=== PATIENT | female | born 1960 | race Caucasian/White ===

== ENCOUNTER → 2017-10-05 | Outpatient (CLI) | payer BC ==
[2017-10-05 09:45] LABS: Basophils # (A) 0.1 k/uL (0-0.2); Basophils % (A) 1 %; Eosinophils # (A) 0.4 k/uL (0-0.7); Eosinophils % (A) 4 %; HCT 34.7 % (34.0-46.0); HGB 11.7 gm/dL (11.4-16.0); Lymphocytes # (A) 3.2 k/uL (1.0-4.8); Lymphocytes % (A) 34 %; MCH 29.1 pg (25.0-35.0); MCHC 33.7 g/dL (31.0-37.0); MCV 86.5 fL (80.0-100.0); Mean Platelet Volume 6.7; Monocytes # (A) 0.4 k/uL (0-1.0); Monocytes % (A) 5 %; Neutrophils # (A) 5.2 k/uL (1.3-7.7); Neutrophils % (A) 55 %; Platelet Count 478 k/uL (150-450); RBC 4.01 m/uL (3.80-5.40); RDW 12.9 % (11.5-15.5); WBC 9.5 k/uL (3.8-10.6)
== END ==
LOC: LABPAT 09:01
PROVIDERS: ATTEND Obstetrics & Gynecology
DX: Z01.818 Encounter for other preprocedural examination (principal); I10 Essential (primary) hypertension; N95.0 Postmenopausal bleeding; Z01.812 Encounter for preprocedural laboratory examination
CPT/HCPCS: 36415; 85025; 93005

== ENCOUNTER → 2017-10-16 | Day surgery (SDC) | payer BC ==
[2017-10-11 10:02] VITALS: BMI 33.7
[~2017-10-16] MED LIST: DEXAMETHASONE SOD PHOSPHATE 10 MG/ML 1 ML VIAL IV ONE; KETOROLAC 30 MG/ML 1 ML VIAL ONE; LIDOCAINE 1% (PF) 10 MG/ML (30 ML SDV) SQ ONE; LIDOCAINE 1% 20 ML VIAL (10MG/ML) FOR IV START INTRADERMA ONE; LIDOCAINE 1% INJ 10MG/ML (20 ML MDV) ONE; MIDAZOLAM 2 MG/2 ML VIAL IV PRN; MIDAZOLAM 2 MG/2 ML VIAL ONE; ONDANSETRON 4 MG/2 ML VIAL IVP ONE; PROPOFOL 10 MG/ML 20 ML VIAL IV ONE; SCOPOLAMINE 1.5MG/72HR PATCH TRANSDERM ONE; ceFAZolin IN SWFI 2 GM/20 ML SYRINGE IVP ONE; fentaNYL (PF) 50 MCG/ML 2 ML AMP IV PRN; fentaNYL (PF) 50 MCG/ML 2 ML AMP ONE
[2017-10-16 08:35] LABS: Glucose,Whole Blood 146 mg/dL (75-99)
[2017-10-16] MEDS: LACTATED RINGERS 1,000 ML IV SCH ×2 (08:36→08:40)
--- NOTE | 2017-10-16 11:09 | P.OP ---
Date of Procedure: 10/16/17 Preoperative Diagnosis: Postmenopausal bleeding Thickened endometrium Postoperative Diagnosis: Postmenopausal bleeding Thickened endometrium Endometrial polyps Procedure(s) Performed: Diagnostic hysteroscopy with polypectomy and D&C Anesthesia: MAC Surgeon: Genie Moss Estimated Blood Loss (ml): 5 IV fluids (ml): 300 Urine output (ml): 400 Pathology: other (Endometrial polyps and curettings) Condition: stable Disposition: PACU Indications for Procedure: Postmenopausal bleeding and findings of thickened endometrium on ultrasound Operative Findings: Multiple polypoid lesions emanating from the fundal and lower uterine segment of the uterus Description of Procedure: After the patient was met in the preoperative holding area and all questions were answered she was taken to the operating room where anesthetic was administered without incident. She was in positioned, prepped and draped in the dorsal lithotomy position. Bladder was drained for a copious amount of clear urine. Speculum was placed in the vagina and the cervix was grasped anteriorly with a single-tooth tenaculum. Paracervical block with lidocaine was placed. Uterus was sounded to 8 cm. The cervix was easily dilated with dilators to allow for passage of the diagnostic hysteroscope. Upon introduction of the hysteroscope multiple polypoid lesions were noted filling the uterine cavity. Hysteroscope was removed and the cervix was further dilated to allow for passage of the stone polyp forceps. Multiple fragments of polyp were removed using the forceps. Banjo curet was then introduced and the uterus was circumferentially curettaged with additional tissue obtained. Hysteroscope was reintroduced and complete resection of all polyps was noted. Instruments were then removed from the cervix which was observed. No active bleeding was noted. All instrument removed from the vagina. The patient was awoken from anesthetic without incident and transported to recovery in stable condition. Counts were correct.
[2017-10-16 11:27] VITALS: TEMP 96.8
[2017-10-16 11:31] VITALS: RESP 16
[2017-10-16 11:35] LABS: Glucose,Whole Blood 122 mg/dL (75-99)
[2017-10-16 12:24] VITALS: BP 113/60; PULSE 62
== END | disposition home or self-care (01) ==
LOC: OR 07:39
PROVIDERS: ATTEND Obstetrics & Gynecology
DX: N84.0 Polyp of corpus uteri (principal); E11.9 Type 2 diabetes mellitus without complications; I10 Essential (primary) hypertension; Z79.1 Long term (current) use of non-steroidal anti-inflammatories (NSAID); Z79.4 Long term (current) use of insulin; Z79.899 Other long term (current) drug therapy; Z98.51 Tubal ligation status; Z88.8 Allergy status to other drugs, medicaments and biological substances; Z88.7 Allergy status to serum and vaccine; Z83.3 Family history of diabetes mellitus; Z80.8 Family history of malignant neoplasm of other organs or systems
CPT/HCPCS: 88305; 58558; J2250; J1100; J2405; J2001 ×2; J3010; J1885; J2704; J0690

== ENCOUNTER → 2019-11-19 | Outpatient (CLI) | payer BC ==
--- NOTE | 2019-11-19 07:54 | US ---
EXAMINATION TYPE: US abdomen complete DATE OF EXAM: 11/19/2019 COMPARISON: NONE CLINICAL HISTORY: R10.811 RUQ ABD TENDERNESS. RUQ tenderness. NPO. EXAM MEASUREMENTS: Liver Length: 17.4 cm Gallbladder Wall: 0.2 cm CBD: 0.4 cm Spleen: 10.7 cm Right Kidney: 9.9 x 4.0 x 5.2 cm Left Kidney: 10.6 x 4.8 x 5.6 cm Pancreas: Tail obscured by overlying bowel gas Liver: Appears coarse and echogenic. Areas of focal sparing seen adjacent to GB Gallbladder: wnl Evidence for sonographic Jimenez's sign: neg CBD: wnl Spleen: wnl Right Kidney: Lower pole cystic appearing lesion = 1.8 x 1.6 x 1.7 cm Left Kidney: Mid/lower anterior cortical cystic appearing lesion = 1.4 x 1.4 x 1.2 cm Upper IVC: Obscured by overlying bowel gas Abd Aorta: Proximal and mid portion obscured by overlying bowel gas The intrahepatic portion of the IVC and proximal abdominal aorta are within normal limits. There is no evidence of cholelithiasis. Common bile duct is unremarkable. The visualized portions of the solorzano creas are homogenous. The spleen is unremarkable. Kidneys are symmetric and free of hydronephrosis. IMPRESSION: 1. Suspect hepatic steatosis with areas of focal fatty sparing. Hepatocellular disease not excluded. 2. Renal cystic changes as discussed.
== END | disposition home or self-care (01) ==
LOC: RADUSWWP 07:00
PROVIDERS: ATTEND Family Medicine
DX: N28.1 Cyst of kidney, acquired (principal); R10.811 Right upper quadrant abdominal tenderness
CPT/HCPCS: 76700

== ENCOUNTER 2022-11-13 23:26 | Emergency (ER) | payer OTHER ==
[2022-11-13 23:42] VITALS: TEMP 98.1
[2022-11-14] MEDS ORDERED: LIDOCAINE 5% PATCH TOPICAL STA (00:08)
--- NOTE | 2022-11-14 01:10 | XR ---
EXAM: XR Right Elbow Complete, 3 or More Views CLINICAL HISTORY: ITS.REASON XR Reason: Pain, trauma TECHNIQUE: Frontal, lateral and oblique views of the right elbow. COMPARISON: No relevant prior studies available. FINDINGS: Bones/joints: Unremarkable. No acute fracture. No dislocation. Soft tissues: Unremarkable. IMPRESSION: Normal right elbow x-rays.
--- NOTE | 2022-11-14 01:10 | XR ---
EXAM: XR Right Shoulder Complete, 2 or More Views CLINICAL HISTORY: ITS.REASON XR Reason: Pain, trauma TECHNIQUE: Two or more views of the right shoulder. COMPARISON: No relevant prior studies available. FINDINGS: Bones/joints: Unremarkable. No acute fracture. No dislocation. Soft tissues: Unremarkable. IMPRESSION: Normal right shoulder x-rays.
--- NOTE | 2022-11-14 02:09 | XR ---
EXAM: XR Right Forearm, 2 Views CLINICAL HISTORY: ITS.REASON XR Reason: Pain, trauma TECHNIQUE: Frontal and lateral views of the right forearm. COMPARISON: No relevant prior studies available. FINDINGS: Bones/joints: Unremarkable. No acute fracture. No dislocation. Soft tissues: Unremarkable. IMPRESSION: Normal right forearm x-rays.
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
[2022-11-14 02:32] VITALS: BP 136/84; PULSE 78; RESP 16
[2022-11-14] MEDS ORDERED: LIDOCAINE 5% PATCH TOPICAL SCH (09:00)
== END 2022-11-14 02:31 | disposition home or self-care (01) ==
LOC: EC 23:26
DX: S46.911A Strain of unspecified muscle, fascia and tendon at shoulder and upper arm level, right arm, initial encounter (principal); E10.9 Type 1 diabetes mellitus without complications; I10 Essential (primary) hypertension; Z79.899 Other long term (current) drug therapy; Z88.1 Allergy status to other antibiotic agents; Z88.7 Allergy status to serum and vaccine; Z88.8 Allergy status to other drugs, medicaments and biological substances; Y04.0XXA Assault by unarmed brawl or fight, initial encounter
CPT/HCPCS: 99283

== ENCOUNTER → 2022-11-15 | Outpatient (CLI) | payer OTHER ==
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
== END | disposition home or self-care (01) ==
LOC: RADMRIMAIN 19:04
PROVIDERS: ATTEND Emergency Medicine
DX: S43.91XA Sprain of unspecified parts of right shoulder girdle, initial encounter (principal); M67.813 Other specified disorders of tendon, right shoulder; S43.421A Sprain of right rotator cuff capsule, initial encounter; S46.011A Strain of muscle(s) and tendon(s) of the rotator cuff of right shoulder, initial encounter; M19.011 Primary osteoarthritis, right shoulder; M25.411 Effusion, right shoulder

== ENCOUNTER → 2022-12-05 | Outpatient (CLI) | payer OTHER ==
[2022-12-05 12:56] LABS: INR 0.9 (<1.2); Partial Thromboplastin Time 24.1 sec (22.0-30.0); Prothrombin Time 9.8 sec (9.0-12.0)
[2022-12-05 21:00] LABS: ALT 23 U/L (8-44); AST 15 U/L (13-35); Albumin 4.7 d/dL (3.8-4.9); Albumin/Globulin Ratio 1.68 Ratio (1.60-3.17); Alkaline Phosphatase 78 U/L (41-126); Blood Urea Nitrogen 36.6 mg/dL (9.0-27.0); Calcium 10.3 mg/dL (8.7-10.3); Carbon Dioxide 26.5 mmol/L (21.6-31.8); Chloride 100 mmol/L (96-109); Globulin 2.8 d/dL (1.6-3.3); Glucose 124 mg/dL (70-110); Sodium 140 mmol/L (135-145); Total Bilirubin 0.4 mg/dL (0.3-1.2); Total Protein 7.5 d/dL (6.2-8.2)
[2022-12-05 22:51] LABS: Basophils # (A) 0.07 X 10*3/uL (0.00-0.10); Basophils % (A) 0.9 %; Eosinophils # (A) 0.17 X 10*3/uL (0.04-0.35); Eosinophils % (A) 2.1 %; HCT 43.6 % (37.2-46.3); HGB 13.8 d/dL (12.0-15.0); Lymphocytes % (A) 29.5 %; MCH 29.6 pg (27.0-32.0); MCHC 31.7 d/dL (32.0-37.0); MCV 93.6 FL (80.0-97.0); Mean Platelet Volume 9.8 FL (9.5-12.2); Monocytes # (A) 0.54 X 10*3/uL (0.20-1.00); Monocytes % (A) 6.6 %; NRBC Per 100 WBC 0 X 10*3/uL (0.00-0.01); Neutrophils # (A) 4.92 X 10*3/uL (1.80-7.70); Neutrophils % (A) 60.4 %; Platelet Count 433 X 10*3/uL (140-440); RBC 4.66 X 10*6/uL (4.10-5.20); RDW 13.4 % (11.5-14.5); WBC 8.14 X 10*3/uL (4.50-10.00)
[2022-12-05 23:06] LABS: Appearance,Urine Clear (Clear); Bilirubin,Urine Negative (Negative); Blood,Urine Negative (Negative); Color,Urine Yellow (Yellow); Ketones,Urine Negative (Negative); Nitrite,Urine Negative (Negative); Specific Gravity,Urine 1.016 (1.001-1.030); Urobilinogen,Urine 0.2 E.U./DL
[2022-12-05 23:13] LABS: Bacteria,Urine None Seen (None Seen)
== END | disposition home or self-care (01) ==
LOC: LABWHC1 11:04
PROVIDERS: ATTEND Family Medicine
DX: Z01.812 Encounter for preprocedural laboratory examination (principal)
CPT/HCPCS: 36415; 80053; 81001; 85025; 85610; 85730

== ENCOUNTER 2023-06-13 08:42 | Day surgery (SDC) | payer OTHER ==
--- NOTE | 2023-06-12 08:25 | P.HPOR ---
History of Present Illness H&P Date: 06/12/23 Chief Complaint: Right shoulder stiffness Patient is a 63-year-old [id number] female who presents with persistent right shoulder stiffness after previously undergoing arthroscopy despite adequate rehabilitation. She does note some night symptoms. Review of Systems As per HPI Past Medical History Past Medical History: Diabetes Mellitus, Hypertension Additional Past Medical History / Comment(s): Hx Ameloblastoma of jaw/pre- cancerous. History of Any Multi-Drug Resistant Organisms: None Reported Past Surgical History: Orthopedic Surgery, Tubal Ligation Additional Past Surgical History / Comment(s): RIGHT MANDIBLE RESECTION, BONE TAKEN FROM LEFT HIP ILIAC CREST AND LEFT FOOT NERVE, LEFT FOREARM ORIF WITH PLATE AND SCREWS, NOW REMOVED SURGERY X4, right shoulder surgery. Past Anesthesia/Blood Transfusion Reactions: No Reported Reaction Additional Past Anesthesia/Blood Transfusion Reaction / Comment(s): STATES DOES NOT HAVE TROUBLE WITH INTUBATION POST SURGERY ON RIGHT MANDIBLE. Smoking Status: Never smoker - Past Family History Mother Family Medical History: Cancer Additional Family Medical History / Comment(s): UTERINE CANCER. Medications and Allergies Home Medications Medication Instructions Recorded Confirmed Type Insulin Glargine [Lantus] 50 unit SQ HS 02/04/16 06/07/23 History hydroCHLOROthiazide [Hydrodiuril] 25 mg PO QAM 02/04/16 06/07/23 History metFORMIN HCL [metFORMIN HCL ER] 1,000 mg PO BID 02/04/16 06/07/23 History ramipriL [Altace] 10 mg PO BID 02/04/16 06/07/23 History Empagliflozin [Jardiance] 25 mg PO QAM 12/16/22 06/07/23 History Tirzepatide [Mounjaro] 2.5 mg SQ RUIZ 02/13/23 06/07/23 History Acetaminophen Tab [Tylenol] 1,000 mg PO QAM 06/07/23 06/07/23 History Meloxicam [Mobic] 7.5 mg PO BID 06/07/23 06/07/23 History Allergies Allergy/AdvReac Type Severity Reaction Status Date / Time doxycycline Allergy Anaphylaxis Verified 02/13/23 10:36 insulin aspart [From Novolog] Allergy RESISTANT Verified 02/13/23 10:36 TO NOVOLOG-BLOOD SUGARS ELEVATED. pioglitazone HCl [From Actos] Allergy Rash/Hives Verified 02/13/23 10:36 simvastatin [From Zocor] Allergy Unknown Verified 02/13/23 10:36 Tetanus Vaccines and Toxoid Allergy Swelling- Verified 02/13/23 10:36 [Tetanus Vaccines & Toxoid] (LOCAL REACTION) amlodipine [From Norvasc] AdvReac Unknown HEART Verified 02/13/23 10:36 PALPITATIONS. Physical Examination - Shoulder right Tenderness with palpation: anterior ROM: forward flexion: 100 degrees (Active and passive) ROM: external rotation: 20 degrees Crepitus with motion: Yes Strength: abduction: 5/5 Strength: external rotation: 5/5 Results The patient is a well-developed well-nourished female approximately 5 foot 5, 180 pounds of mesomorphic habitus. HEENT exam is nonfocal, neck is supple. She has limited active/passive range of motion of the right shoulder. Her distal neurovascular appears intact in the right upper extremity. Assessment and Plan Assessment: Status post right shoulder arthroscopic subacromial decompression/rotator cuff debridement/biceps tenodesis Right shoulder adhesive capsulitis Insulin-dependent diabetes Plan: I talked to the patient with regarding her condition along with treatment options. At this point she remains quite stiff despite adequate postoperative rehabilitation. After a thorough discussion she opts to proceed with manipulation under anesthesia of the right shoulder including a subacromial cortisone injection. Risks and benefits were discussed in layman's terms. We will likely perform that as an outpatient procedure.
[~2023-06-13 08:42] MED LIST changes: -DEXAMETHASONE SOD PHOSPHATE 10 MG/ML 1 ML VIAL IV ONE; +DEXAMETHASONE SOD PHOSPHATE 4 MG/ML 1 ML VIAL IV ONE; -KETOROLAC 30 MG/ML 1 ML VIAL ONE; +LACTATED RINGERS 1,000 ML IV SCH; -LIDOCAINE 1% (PF) 10 MG/ML (30 ML SDV) SQ ONE; -LIDOCAINE 1% 20 ML VIAL (10MG/ML) FOR IV START INTRADERMA ONE; -LIDOCAINE 1% INJ 10MG/ML (20 ML MDV) ONE; -MIDAZOLAM 2 MG/2 ML VIAL IV PRN; -MIDAZOLAM 2 MG/2 ML VIAL ONE; -PROPOFOL 10 MG/ML 20 ML VIAL IV ONE; -SCOPOLAMINE 1.5MG/72HR PATCH TRANSDERM ONE; -ceFAZolin IN SWFI 2 GM/20 ML SYRINGE IVP ONE; -fentaNYL (PF) 50 MCG/ML 2 ML AMP IV PRN; -fentaNYL (PF) 50 MCG/ML 2 ML AMP ONE
[2023-06-13 09:09] LABS: Glucose,Whole Blood 142 mg/dL (70-110)
[2023-06-13] MEDS ORDERED: ONDANSETRON 4 MG/2 ML VIAL ONE (09:46)
[2023-06-13] MEDS ORDERED: PROPOFOL 10 MG/ML 20 ML VIAL IV ONE (09:46)
[2023-06-13] MEDS ORDERED: fentaNYL (PF) 50 MCG/ML 2 ML AMP ONE (09:46)
[2023-06-13] MEDS ORDERED: KETOROLAC 30 MG/ML 1 ML VIAL ONE (09:46)
[2023-06-13 09:49] VITALS: TEMP 98
[2023-06-13] MEDS ORDERED: methylPREDNISolone ACETATE 80 MG/ML 1 ML VIAL INJ ONE (09:58)
[2023-06-13] MEDS ORDERED: BUPIVACAINE (PF) 0.25% 30 ML VIAL MISCELLANE ONE (09:58)
--- NOTE | 2023-06-13 10:06 | P.OP ---
Date of Procedure: 06/13/23 Preoperative Diagnosis: Right shoulder adhesive capsulitis Postoperative Diagnosis: Same Procedure(s) Performed: Manipulation under anesthesia right shoulder with subacromial cortisone injection Anesthesia: MAC Surgeon: Rich Rice Estimated Blood Loss (ml): 0 Pathology: none sent Condition: stable Disposition: PACU Indications for Procedure: The patient is a 63-year-old female who previously underwent right shoulder arthroscopy who had persistent stiffness despite adequate postoperative rehabilitation. A discussion of the risks and benefits of manipulation under anesthesia along with a subacromial cortisone injection was made with the patient. She opted to proceed. Specific risks of the procedure to include fracture, tendon rupture, possible recurrence of stiffness and need for subsequent procedures was discussed. Informed consent was obtained. Operative Findings: As below Description of Procedure: The patient was brought to the recovery room, and after induction of IV sedation I then gently manipulated the right shoulder. First with the arm at side, I was able to obtain full external rotation. Moderate adhesions were encountered. I then obtained full forward elevation. Again moderate adhesions were encountered. I felt that I had adequate release at this point. The posterior right shoulder was then prepped with ChloraPrep. Utilizing a spinal needle I injected 5 mL of quarter percent plain Marcaine and 80 mg of Depo-Medrol. The patient was then monitored until fully awake. There was no blood loss. There were no complications.
[2023-06-13] MEDS: HYDROmorphone 0.5 MG/0.5 ML SYRINGE IVP PRN ×4 (10:17→10:51)
[2023-06-13 11:50] VITALS: BP 156/80; PULSE 101; RESP 18
== END 2023-06-13 11:58 | disposition home or self-care (01) ==
LOC: OR 08:42
PROVIDERS: ATTEND Orthopaedic Surgery
DX: M75.01 Adhesive capsulitis of right shoulder (principal); E11.9 Type 2 diabetes mellitus without complications; I10 Essential (primary) hypertension; K21.9 Gastro-esophageal reflux disease without esophagitis; Z98.51 Tubal ligation status; Z98.890 Other specified postprocedural states; Z80.9 Family history of malignant neoplasm, unspecified; Z79.4 Long term (current) use of insulin; Z79.84 Long term (current) use of oral hypoglycemic drugs; Z79.899 Other long term (current) drug therapy; Z88.1 Allergy status to other antibiotic agents; Z88.8 Allergy status to other drugs, medicaments and biological substances; Z85.830 Personal history of malignant neoplasm of bone
CPT/HCPCS: 23700; J1040; J1100; J2405; J3010; J1885; J2704; J1170; J0665